=== PATIENT | male | born 1990 | race Caucasian/White ===

== ENCOUNTER 2019-05-31 14:11 | Emergency (ER) | payer MEDICAID ==
[~2019-05-31] VITALS: Ht 193 cm; Wt 90.9 kg
[2019-05-31] MEDS ORDERED: CefTRIAXone 2gm/D5W 50ml 50 ML IV ONE (15:20)
[2019-05-31] MEDS ORDERED: LIDOcaine 1% w/EPI 1:200,000 injection 10mL vial IM ONE (15:20)
[2019-05-31] MEDS ORDERED: normal saline 1000ML IV soln IV ONE (15:20)
[2019-05-31] MEDS ORDERED: BACDS PO (15:39)
[2019-05-31] MEDS ORDERED: CEPH250T PO (15:39)
[2019-05-31] MEDS ORDERED: LIDOcaine 1% w/epiNEPHrine 1:200,000 30ml vial IM ONE (15:40)
[2019-05-31 15:48] LABS: BASOPHILS # (AUTO) 0.1 X10'3 (0-0.2); BASOPHILS % (AUTO) 0.9 % (0-1); EOSINOPHILS # (AUTO) 0.1 X10'3 (0-0.9); EOSINOPHILS % (AUTO) 0.8 % (0-6); HEMATOCRIT 38.2 % (42.0-52.0); LYMPHOCYTES # (AUTO) 1.5 X10'3 (1.1-4.8); LYMPHOCYTES % (AUTO) 12.4 % (21-51); MEAN CORPUSCULAR HEMOGLOBIN 30.4 PG (27.0-31.0); MEAN CORPUSCULAR HGB CONC 33.9 g/dL (33.0-36.5); MEAN CORPUSCULAR VOLUME 89.7 FL (78-98); MEAN PLATELET VOLUME 7.3 FL (7.4-10.4); MONOCYTES % (AUTO) 8.4 % (2-12); NEUTROPHILS # (AUTO) 9.5 X10'3 (1.8-7.7); NEUTROPHILS % (AUTO) 77.5 % (42-75); PLATELET COUNT 290 X10'3 (140-440); RED BLOOD COUNT 4.26 X10'6 (4.70-6.10); RED CELL DISTRIBUTION WIDTH 13.8 % (11.5-14.5); WHITE BLOOD COUNT 12.2 X10'3 (4.5-11.0)
[2019-05-31 16:04] LABS: ALANINE AMINOTRANSFERASE 25 U/L (12-78); ALBUMIN 3.4 G/DL (3.4-5.0); ALBUMIN/GLOBULIN RATIO 0.9 (1.1-1.5); ALKALINE PHOSPHATASE 67 IU/L (46-116); ANION GAP 8 (8-16); ASPARTATE AMINO TRANSFERASE 16 U/L (10-37); BILIRUBIN,TOTAL 0.8 MG/DL (0.1-1.0); BLOOD UREA NITROGEN 8 MG/DL (7-18); BUN/CREATININE RATIO 9.9 (5.4-32.0); CALCIUM 8.7 MG/DL (8.5-10.1); CHLORIDE 106 MMOL/L (99-107); CREATININE 0.81 MG/DL (0.60-1.10); GLUCOSE 97 MG/DL (70-104); POTASSIUM 3.7 MMOL/L (3.5-5.1); SODIUM 141 MMOL/L (135-145); TOTAL CARBON DIOXIDE 27.2 MMOL/L (24-32); eGFR > 90 ML/MIN
--- NOTE | 2019-05-31 16:04 | NUR ---
SCANNER NOT WORKING IN ROOM. WORK ORDER PLACED.
[2019-05-31] MEDS ORDERED: iohexol 300mg/ml 100ml inj. ONE (16:16)
[2019-05-31] MEDS ORDERED: ketorolac tromethamine 15mg/ml inj. IV ONE (16:20)
[2019-05-31 17:10] VITALS: BP 135/87
== END 2019-05-31 17:15 | disposition home or self-care (01) ==
LOC: ER 14:12
DX: L02.01 Cutaneous abscess of face (principal); L03.211 Cellulitis of face; H04.013 Acute dacryoadenitis, bilateral lacrimal glands; R05 Cough; F15.90 Other stimulant use, unspecified, uncomplicated; F10.99 Alcohol use, unspecified with unspecified alcohol-induced disorder; Z59.0 Homelessness; Z79.899 Other long term (current) drug therapy; Y90.9 Presence of alcohol in blood, level not specified
CPT/HCPCS: 10060; 36415; 70481; 71045; 80053; 84145; 85025; 96365; 96375; 99284; J0696; J1885; J7030; Q9967